=== PATIENT | female | born 1985 | race Two or more races ===

== ENCOUNTER 2019-10-13 12:39 | Outpatient (CLI) | payer MEDICAID ==
--- NOTE | ~2019-10-13 | OP ---
PATIENT NAME: RACHEL MCELROY MEDICAL RECORD: [id number] :81 LOCATION:[facility] ADMISSION DATE: SURGEON: THANG GUAMAN MD DATE OF OPERATION: 10/13/2019 PREOPERATIVE DIAGNOSIS: Inevitable . POSTOPERATIVE DIAGNOSIS: Inevitable . PROCEDURE: Dilation and evacuation. SURGEON: Thang Guaman M.D. ANESTHETICS: General. FINDINGS: Cervical os is open. Copious amounts of products of conception. SPECIMENS: Products of conception. SPECIMEN DISPOSITION: Pathology. ESTIMATED BLOOD LOSS: 75 mL. FLUIDS: 700 mL normal saline. URINE OUTPUT: Quantity sufficient void prior to this procedure. COMPLICATIONS: None. DRAINS: None. INDICATIONS: The patient is a 34-year-old female who presented to the Emergency Room with heavy vaginal bleeding. The patient is noted to be in the first trimester of . Cervix is open and the patient is having heavy bleeding. The patient is consented for dilation and evacuation. DESCRIPTION OF PROCEDURE: After informed consent is assured, the patient is taken to the operating room where anesthetic is obtained. The patient is now prepped and draped. A speculum is introduced and the cervix visualized and grasped with a tenaculum. The cervical os is open. Further dilation is required to place a #3 curette. A #8 curved suction curette is passed. On several passes, products of conceptions removed. Curettage is now performed until good cry is obtained throughout. Suction device is used for another pass to clear remaining clot and debris. Single-tooth tenaculum is removed from the cervix. Methergine is given. Sponge, lap, and needle counts correct times 2. The patient is awakened and went to the recovery room in stable condition. NTS:[id number] Voice Confirmation ID: [id number] DOCUMENT ID: [id number] OPERATIVE REPORT [id number] RACHEL MCELROY THANG GUAMAN MD CC: [id number] DICTATION DATE: 11/14/191731 [employer]MENT SUPERVISOR: 11/15/19 0033 DEP CLI 10/13/19 [facility] [address] [place] [address]
[~2019-10-13 12:39] MED LIST: PRENAVITE1 TAB PO
[2019-10-13 13:52] LABS: HEMOGLOBIN 9.2 g/dL (12-16); MCH 30.5 pg (26.0-34.0); MCHC 32.9 g/dL (31.0-37.0); MCV 92.7 fL (80.0-100.0); MEAN PLATELET VOLUME 10.6 fL (7.4-10.4); RBC 3.02 10x6/uL (4.00-5.40); RDW 12.7 % (11.5-14.5); WBC 11.2 10x3/uL (4.8-10.8)
[2019-10-13 15:19] VITALS: BP 107/54
[2019-10-13 15:25] LABS: HEMATOCRIT 28.3 % (36.0-48.0); HEMOGLOBIN 9.4 g/dL (12-16)
== END 2019-10-13 18:30 | disposition home or self-care (01) ==
LOC: D.LDO 12:39
PROVIDERS: ATTEND Obstetrics & Gynecology
DX: O03.4 Incomplete spontaneous abortion without complication (principal)